=== PATIENT | female | born 1955 | race Caucasian/White ===

== ENCOUNTER 2023-02-18 12:17 | Observation (INO) ==
[2023-02-18 15:05] LABS: ABS Basophils 0.1 10^3/uL (0.0-0.1); ABS Eosinophils 0.2 10^3/uL (0.0-0.5); ABS Lymphocytes 2.9 10^3/uL (1.0-4.8); ABS Monocytes 1.1 10^3/uL (0.0-0.9); ABS Neutrophils 12.4 10^3/uL (1.5-7.6); ABS Nucleated RBC 0.03 10^3/ul; Eosinophil % 1.1 %; Hematocrit 39.2 % (35-45); Hemoglobin 13.3 g/dL (11.5-14.3); Lymphocyte % 17.5 %; Mean Corpuscular Hemoglobin 32.2 pg (27-33); Mean Corpuscular Volume 94.5 fL (80-97); Mean Platelet Volume 6.6 fL (7.5-11.2); Nucleated Red Blood Cells % 0.2 /100 WBC (0.0-0.4); Platelet Count 499 10^3/uL (150-450); Red Blood Count 4.15 10^6/uL (3.63-4.92); Red Cell Distribution Width 14.4 % (12-17); White Blood Count 16.8 10^3/uL (3.8-11.8)
[2023-02-18 15:28] LABS: Albumin 4.1 g/dL (3.2-5.2); Albumin/Globulin Ratio 1.1 (1-3); Calcium 9.8 mg/dL (8.6-10.3); Creatinine, Serum 1.01 mg/dL (0.51-0.95); Globulin 3.9 g/dL (2-4); Potassium 3.9 mmol/L (3.5-5.0); Total Bilirubin 0.4 mg/dL (0.2-1.0)
[2023-02-18 16:22] LABS: PCO2 Arterial 40 mmHg (35-45); PO2 Arterial 72 mmHg (80-100)
[2023-02-18] MEDS ORDERED: Albuterol 2.5mg/3 ml (0.083%) NEB.SOLN INH ONE (19:19)
[2023-02-18] MEDS ORDERED: Iohexol 350 (CONTRAST) 500 ML MDV IV ONE (20:52)
[2023-02-18] MEDS ORDERED: Azithromycin 500 mg/250 ml NS 500 MG/250 ML BAG IVPB ONE (22:46)
[2023-02-18] MEDS ORDERED: cefTRIAXone 1 gm/50 mL D5W 1 GM/50 ML BAG IV ONE (22:46)
[2023-02-19] MEDS ORDERED: Albuterol HFA INHALER 8 gm MDI INH PRN (00:23)
[2023-02-19] MEDS ORDERED: HYDROcodone/ACETAMIN 5/325 mg TAB PO PRN ×2 (00:23→23:31)
[2023-02-19] MEDS ORDERED: Enoxaparin 40 MG/0.4 ML SYR SUBCUT SCH (01:00)
[2023-02-19 02:14] LABS: C Reactive Protein 52.15 mg/L (<8.01)
[2023-02-19 02:32] LABS: Ferritin 249.4 ng/mL (11-307)
[2023-02-19] MEDS: Nicotine PATCH 14 MG/24 HR PATCH TRANSDERM SCH ×2 (04:59→08:50)
[2023-02-19 06:13] LABS: TSH Ultra Thyroid Stim Horm 5.14 mcIU/mL (0.34-5.60)
[2023-02-19] MEDS: Mometasone/Formoter 100/5 MDI INH SCH ×2 (08:00→18:51)
[2023-02-19] MEDS: SPIRIVA Respimat (tiotropium) 2.5 mcg/inh Inhaler INH SCH (08:02)
[2023-02-19] MEDS: CMCS:Meloxicam 7.5 mg TAB (NF) PO SCH (08:49)
[2023-02-19 11:24] LABS: ABS Basophils 0.1 10^3/uL (0.0-0.1); ABS Eosinophils 0.1 10^3/uL (0.0-0.5); ABS Lymphocytes 2.1 10^3/uL (1.0-4.8); ABS Monocytes 0.9 10^3/uL (0.0-0.9); ABS Neutrophils 9.8 10^3/uL (1.5-7.6); Eosinophil % 0.9 %; Hematocrit 37.9 % (35-45); Hemoglobin 12.9 g/dL (11.5-14.3); Lymphocyte % 15.8 %; Mean Corpuscular Hemoglobin 32.3 pg (27-33); Mean Corpuscular Hgb Conc 34.2 g/dL (31-36); Mean Corpuscular Volume 94.6 fL (80-97); Mean Platelet Volume 6.6 fL (7.5-11.2); Platelet Count 448 10^3/uL (150-450); Red Cell Distribution Width 14.3 % (12-17); White Blood Count 13.1 10^3/uL (3.8-11.8)
[2023-02-19] MEDS: Enoxaparin 40 MG/0.4 ML SYR SUBCUT SCH (19:51)
[2023-02-19] MEDS: Azithromycin 500 mg/250 ml NS 500 MG/250 ML BAG IVPB SCH (20:52)
[2023-02-19] MEDS: HYDROcodone/ACETAMIN 5/325 mg TAB PO PRN (23:56)
[2023-02-19] MEDS: cefTRIAXone 1 gm/50 mL D5W 1 GM/50 ML BAG IV SCH (23:57)
[2023-02-20] MEDS ORDERED: Azithromycin 500 mg/250 ml NS 500 MG/250 ML BAG IVPB SCH (01:00)
[2023-02-20] MEDS ORDERED: cefTRIAXone 1 gm/50 mL D5W 1 GM/50 ML BAG IV SCH (01:00)
[2023-02-20 06:04] LABS: ABS Basophils 0.1 10^3/uL (0.0-0.1); ABS Eosinophils 0.2 10^3/uL (0.0-0.5); ABS Lymphocytes 2.9 10^3/uL (1.0-4.8); ABS Monocytes 0.7 10^3/uL (0.0-0.9); ABS Neutrophils 6.1 10^3/uL (1.5-7.6); ABS Nucleated RBC 0.01 10^3/ul; Eosinophil % 1.8 %; Hemoglobin 12.7 g/dL (11.5-14.3); Lymphocyte % 29.3 %; Mean Corpuscular Hemoglobin 32.6 pg (27-33); Mean Corpuscular Hgb Conc 34.3 g/dL (31-36); Mean Corpuscular Volume 95.2 fL (80-97); Mean Platelet Volume 6.6 fL (7.5-11.2); Nucleated Red Blood Cells % 0.1 /100 WBC (0.0-0.4); Platelet Count 418 10^3/uL (150-450); Red Blood Count 3.88 10^6/uL (3.63-4.92); Red Cell Distribution Width 14.6 % (12-17)
[2023-02-20 06:20] LABS: Calcium 8.4 mg/dL (8.6-10.3); Creatinine, Serum 1.02 mg/dL (0.51-0.95); Magnesium 1.9 mg/dL (1.9-2.7); Potassium 4.2 mmol/L (3.5-5.0); eGFR CKD-EPI 60.3 (>60)
[2023-02-20] MEDS: Mometasone/Formoter 100/5 MDI INH SCH ×2 (07:11→21:18)
[2023-02-20] MEDS: SPIRIVA Respimat (tiotropium) 2.5 mcg/inh Inhaler INH SCH (07:11)
[2023-02-20] MEDS: CMCS:Meloxicam 7.5 mg TAB (NF) PO SCH (08:23)
[2023-02-20] MEDS: Nicotine PATCH 14 MG/24 HR PATCH TRANSDERM SCH (08:23)
[2023-02-20] MEDS: HYDROcodone/ACETAMIN 5/325 mg TAB PO PRN (19:57)
[2023-02-20] MEDS ORDERED: Nystatin TOP POWDER 15 GM BTL TOPICAL SCH (21:00)
[2023-02-20] MEDS: Enoxaparin 40 MG/0.4 ML SYR SUBCUT SCH (22:06)
[2023-02-20] MEDS: Azithromycin 500 mg/250 ml NS 500 MG/250 ML BAG IVPB SCH (22:07)
[2023-02-20] MEDS: Miconazole 2% Top Powder BTL TOPICAL SCH (22:14)
[2023-02-20] MEDS: cefTRIAXone 1 gm/50 mL D5W 1 GM/50 ML BAG IV SCH (23:45)
[2023-02-21 05:25] LABS: Hematocrit 36.7 % (35-45); Hemoglobin 12.1 g/dL (11.5-14.3); Mean Corpuscular Hemoglobin 31.8 pg (27-33); Mean Corpuscular Hgb Conc 33.1 g/dL (31-36); Mean Corpuscular Volume 96.1 fL (80-97); Mean Platelet Volume 6.7 fL (7.5-11.2); Platelet Count 435 10^3/uL (150-450); Red Blood Count 3.82 10^6/uL (3.63-4.92); Red Cell Distribution Width 14.4 % (12-17); White Blood Count 14.2 10^3/uL (3.8-11.8)
[2023-02-21] MEDS: SPIRIVA Respimat (tiotropium) 2.5 mcg/inh Inhaler INH SCH (07:51)
[2023-02-21] MEDS: Mometasone/Formoter 100/5 MDI INH SCH (07:51)
[2023-02-21] MEDS: Nicotine PATCH 14 MG/24 HR PATCH TRANSDERM SCH (09:56)
[2023-02-21] MEDS: CMCS:Meloxicam 7.5 mg TAB (NF) PO SCH (09:56)
[2023-02-21] MEDS: Miconazole 2% Top Powder BTL TOPICAL SCH (09:57)
[2023-02-21 16:05] VITALS: BP 148/78
== END 2023-02-21 17:50 | disposition home or self-care (01) ==
LOC: ED 12:17 → EDHOLD 12:17 → SUATTDRO 02-19 00:05 → EDHOLD 02-19 02:13 → MED 02-19 03:19
PROVIDERS: ADMIT Internal Medicine; ATTEND Hospitalist